=== PATIENT | male | born 1985 | race Caucasian/White ===

== ENCOUNTER 2016-07-30 20:30 | Emergency (ER) | payer OTHER ==
[~2016-07-30] VITALS: Ht 177.8 cm; Wt 105.0 kg
[2016-07-30 21:23] LABS: BASOPHIL % 0.1 % (0-2); PLATELET COUNT 177 x10^3mcL (130-400); RED CELL DISTRIBUTION WIDTH 13.8 % (11.5-14.5)
[2016-07-30 21:33] LABS: CALCIUM 9.3 mg/dL (8.5-10.1); CARBON DIOXIDE 27.8 mmol/L (21-32); CHLORIDE SERUM 103 mmol/L (98-107); CREATININE SERUM 1.2 mg/dL (0.7-1.3); GFR1 > 60 mL/min; GLUCOSE SERUM 127 mg/dL (74-106); SODIUM SERUM 142 mmol/L (136-145)
[2016-07-30 21:38] LABS: ALBUMIN 4.3 g/dL (3.4-5.0); ALKALINE PHOSPHATASE 77 U/L (46-116); ALT/SGPT 101 U/L (16-63); AMYLASE 33 U/L (25-115); AST/SGOT 44 U/L (15-37); BILIRUBIN TOTAL 0.7 mg/dL (0.20-1.00); LIPASE 130 IU/L (73-393)
[2016-07-30 22:13] VITALS: BP 139/82
== END 2016-07-30 22:13 | disposition home or self-care (01) ==
LOC: ED 20:30
PROVIDERS: Emergency Medicine
DX: R11.10 Vomiting, unspecified (principal); F41.9 Anxiety disorder, unspecified; J45.909 Unspecified asthma, uncomplicated; Z79.51 Long term (current) use of inhaled steroids
CPT/HCPCS: 36415; Q0092; Q0162

== ENCOUNTER 2016-09-10 20:20 | Emergency (ER) | payer OTHER ==
[~2016-09-10] VITALS: Ht 177.8 cm; Wt 101.6 kg
[2016-09-10 20:22] VITALS: BP 124/81
== END 2016-09-10 21:42 | disposition home or self-care (01) ==
LOC: ED 20:20
DX: K04.7 Periapical abscess without sinus (principal); F41.9 Anxiety disorder, unspecified; J45.909 Unspecified asthma, uncomplicated

== ENCOUNTER 2016-09-14 17:30 | Emergency (ER) | payer OTHER ==
[2016-09-14 17:35] VITALS: BP 137/89
== END 2016-09-14 18:45 | disposition home or self-care (01) ==
LOC: ED 17:30
DX: K04.7 Periapical abscess without sinus (principal); K02.9 Dental caries, unspecified; J45.909 Unspecified asthma, uncomplicated

== ENCOUNTER 2016-11-06 17:22 | Emergency (ER) | payer OTHER ==
[~2016-11-06] VITALS: Ht 177.8 cm; Wt 100.2 kg
[2016-11-06 19:37] VITALS: BP 138/89
== END 2016-11-06 19:30 | disposition home or self-care (01) ==
LOC: ED 17:22
DX: L03.116 Cellulitis of left lower limb (principal); J45.909 Unspecified asthma, uncomplicated

== ENCOUNTER 2017-01-13 21:04 | Emergency (ER) | payer OTHER ==
[2017-01-13 22:50] VITALS: BP 130/69
== END 2017-01-13 22:50 | disposition home or self-care (01) ==
LOC: ED 21:04
DX: M72.2 Plantar fascial fibromatosis (principal); M77.52 Other enthesopathy of left foot and ankle
CPT/HCPCS: J1885

== ENCOUNTER 2017-02-24 07:33 | Emergency (ER) | payer OTHER ==
[~2017-02-24] VITALS: Ht 177.8 cm; Wt 103.4 kg
[2017-02-24 07:36] VITALS: Ht 177.8 cm; Wt 103.4 kg
[2017-02-24 09:06] LABS: BASOPHIL % 0.3 % (0-2); PLATELET COUNT 165 x10^3mcL (130-400); RED CELL DISTRIBUTION WIDTH 13.3 % (11.5-14.5)
[2017-02-24 09:15] LABS: CALCIUM 8.5 mg/dL (8.5-10.1); CARBON DIOXIDE 30.8 mmol/L (21-32); CHLORIDE SERUM 105 mmol/L (98-107); GFR1 > 60 mL/min; GLUCOSE SERUM 118 mg/dL (74-106); POTASSIUM SERUM 3.9 mmol/L (3.5-5.1); SODIUM SERUM 141 mmol/L (136-145)
[2017-02-24 09:20] LABS: ALBUMIN 3.6 g/dL (3.4-5.0); ALKALINE PHOSPHATASE 68 U/L (46-116); ALT/SGPT 105 U/L (16-63); AST/SGOT 43 U/L (15-37); BILIRUBIN TOTAL 0.7 mg/dL (0.20-1.00); TOTAL PROTEIN, SERUM 7.2 g/dL (6.4-8.2)
[2017-02-24 10:41] VITALS: BP 145/94
== END 2017-02-24 10:41 | disposition home or self-care (01) ==
LOC: ED 07:33
PROVIDERS: Emergency Medicine
DX: R42 Dizziness and giddiness (principal); J45.909 Unspecified asthma, uncomplicated
CPT/HCPCS: 36415; 82962; J8597

== ENCOUNTER 2017-05-05 19:25 | Emergency (ER) | payer OTHER ==
[~2017-05-05] VITALS: Ht 180.3 cm; Wt 110.8 kg
[2017-05-05 19:28] VITALS: Ht 180.3 cm; Wt 110.8 kg
[2017-05-05 20:28] LABS: CALCIUM 8.8 mg/dL (8.5-10.1); CHLORIDE SERUM 104 mmol/L (98-107); GFR1 > 60 mL/min; GLUCOSE SERUM 110 mg/dL (74-106); POTASSIUM SERUM 3.8 mmol/L (3.5-5.1); SODIUM SERUM 138 mmol/L (136-145)
[2017-05-05 20:30] LABS: BASOPHIL % 0.5 % (0-2); PLATELET COUNT 160 x10^3mcL (130-400); RED CELL DISTRIBUTION WIDTH 13.4 % (11.5-14.5)
[2017-05-05 20:32] LABS: ALBUMIN 3.7 g/dL (3.4-5.0); ALKALINE PHOSPHATASE 64 U/L (46-116); ALT/SGPT 124 U/L (16-63); AST/SGOT 49 U/L (15-37); BILIRUBIN TOTAL 0.5 mg/dL (0.20-1.00); CHOLESTEROL 153 mg/dL (<200); HDL CHOLESTEROL 36 mg/dL (40-60); PHOSPHOROUS 3.6 mg/dL (2.5-4.9); TOTAL PROTEIN, SERUM 7.1 g/dL (6.4-8.2); URIC ACID 9.3 mg/dL (3.5-7.2)
[2017-05-05 21:38] VITALS: BP 135/76
== END 2017-05-05 21:38 | disposition home or self-care (01) ==
LOC: ED 19:25
PROVIDERS: Emergency Medicine
DX: R07.89 Other chest pain (principal); J45.909 Unspecified asthma, uncomplicated
CPT/HCPCS: 36415; 83880; J1885; Q0092

== ENCOUNTER 2017-06-13 11:49 | Emergency (ER) | payer OTHER ==
[~2017-06-13] VITALS: Ht 177.8 cm; Wt 109.8 kg
[2017-06-13 11:52] VITALS: Ht 177.8 cm; Wt 109.8 kg
[2017-06-13 13:18] LABS: BASOPHIL % 0.6 % (0-2); PLATELET COUNT 177 x10^3mcL (130-400); RED CELL DISTRIBUTION WIDTH 13.6 % (11.5-14.5)
[2017-06-13 13:35] LABS: CALCIUM 9.1 mg/dL (8.5-10.1); CARBON DIOXIDE 25.6 mmol/L (21-32); CHLORIDE SERUM 105 mmol/L (98-107); GFR1 > 60 mL/min; GLUCOSE SERUM 144 mg/dL (74-106); POTASSIUM SERUM 4.1 mmol/L (3.5-5.1); SODIUM SERUM 139 mmol/L (136-145)
[2017-06-13 13:40] LABS: ALKALINE PHOSPHATASE 71 U/L (46-116); ALT/SGPT 163 U/L (16-63); AST/SGOT 75 U/L (15-37); TOTAL PROTEIN, SERUM 7.7 g/dL (6.4-8.2)
[2017-06-13 14:34] VITALS: BP 125/79
== END 2017-06-13 14:34 | disposition home or self-care (01) ==
LOC: ED 11:49
PROVIDERS: Emergency Medicine
DX: R07.89 Other chest pain (principal); J45.909 Unspecified asthma, uncomplicated
CPT/HCPCS: 36415; 83880; 85378; J1885; Q0092

== ENCOUNTER 2017-07-02 12:38 | Emergency (ER) | payer OTHER ==
[~2017-07-02] VITALS: Ht 177.8 cm; Wt 108.9 kg
[2017-07-02 12:43] VITALS: BP 149/95; Ht 177.8 cm; Wt 108.9 kg
== END 2017-07-02 14:19 | disposition home or self-care (01) ==
LOC: ED 12:38
DX: H10.213 Acute toxic conjunctivitis, bilateral (principal); T30.0 Burn of unspecified body region, unspecified degree; T79.9XXA Unspecified early complication of trauma, initial encounter; J45.909 Unspecified asthma, uncomplicated; X08.8XXA Exposure to other specified smoke, fire and flames, initial encounter; Y93.89 Activity, other specified; Y92.89 Other specified places as the place of occurrence of the external cause; Y99.8 Other external cause status
CPT/HCPCS: J7030; V2632

== ENCOUNTER 2017-07-18 22:01 | Emergency (ER) | payer OTHER ==
[~2017-07-18] VITALS: Ht 180.3 cm; Wt 112.5 kg
[2017-07-18 22:32] VITALS: Ht 180.3 cm; Wt 112.5 kg
[2017-07-19 00:41] VITALS: BP 129/78
== END 2017-07-19 00:41 | disposition home or self-care (01) ==
LOC: ED 22:01
DX: M79.675 Pain in left toe(s) (principal); J45.909 Unspecified asthma, uncomplicated
CPT/HCPCS: Q0092

== ENCOUNTER 2017-10-02 16:15 | Emergency (ER) | payer OTHER ==
[~2017-10-02] VITALS: Ht 177.8 cm; Wt 108.4 kg
[2017-10-02 16:27] VITALS: Ht 177.8 cm; Wt 108.4 kg
[2017-10-02 16:59] LABS: BASOPHIL % 0.4 % (0-2); PLATELET COUNT 183 x10^3mcL (130-400); RED CELL DISTRIBUTION WIDTH 13.6 % (11.5-14.5)
[2017-10-02 17:08] LABS: microscopic required? NO
[2017-10-02 17:14] LABS: CALCIUM 8.5 mg/dL (8.5-10.1); CARBON DIOXIDE 28.8 mmol/L (21-32); CHLORIDE SERUM 105 mmol/L (98-107); GFR1 > 60 mL/min; GLUCOSE SERUM 98 mg/dL (74-106); POTASSIUM SERUM 3.4 mmol/L (3.5-5.1); SODIUM SERUM 141 mmol/L (136-145)
[2017-10-02 17:15] LABS: ALBUMIN 3.8 g/dL (3.4-5.0); ALKALINE PHOSPHATASE 71 U/L (46-116); ALT/SGPT 104 U/L (16-63); AST/SGOT 51 U/L (15-37); BILIRUBIN TOTAL 0.78 mg/dL (0.20-1.00); TOTAL PROTEIN, SERUM 7.1 g/dL (6.4-8.2)
[2017-10-02 17:32] LABS: UA SPECIFIC GRAVITY 1.025 (1.005-1.035); urine erythrocyte NEGATIVE (NEGATIVE)
[2017-10-02 17:56] VITALS: BP 123/72
== END 2017-10-02 17:56 | disposition home or self-care (01) ==
LOC: ED 16:15
PROVIDERS: Emergency Medicine
DX: R10.30 Lower abdominal pain, unspecified (principal); J45.909 Unspecified asthma, uncomplicated; R30.9 Painful micturition, unspecified
CPT/HCPCS: 36415; 87491; 87591; J1885

== ENCOUNTER 2017-11-13 10:39 | Emergency (ER) | payer OTHER ==
[~2017-11-13] VITALS: Ht 177.8 cm; Wt 108.0 kg
[2017-11-13 10:43] VITALS: Ht 177.8 cm; Wt 108.0 kg
[2017-11-13 12:49] VITALS: BP 136/70
== END 2017-11-13 12:49 | disposition home or self-care (01) ==
LOC: ED 10:39
DX: J20.9 Acute bronchitis, unspecified (principal); J45.909 Unspecified asthma, uncomplicated
CPT/HCPCS: J1885; J7613; J7644

== ENCOUNTER 2018-05-19 20:47 | Emergency (ER) | payer OTHER ==
[~2018-05-19] VITALS: Ht 177.8 cm; Wt 108.4 kg
[2018-05-19 21:05] VITALS: Ht 177.8 cm; Wt 108.4 kg
[2018-05-19 21:33] VITALS: BP 130/79
== END 2018-05-19 21:33 | disposition home or self-care (01) ==
LOC: ED 20:47
DX: K62.5 Hemorrhage of anus and rectum (principal); J45.909 Unspecified asthma, uncomplicated

== ENCOUNTER 2018-05-20 11:47 | Emergency (ER) | payer OTHER ==
[~2018-05-20] VITALS: Ht 180.3 cm; Wt 107.5 kg
[2018-05-20 11:54] VITALS: Ht 180.3 cm; Wt 107.5 kg
[2018-05-20 13:41] LABS: microscopic required? NO
[2018-05-20 13:49] LABS: urine erythrocyte NEGATIVE (NEGATIVE)
[2018-05-20 13:52] LABS: BASOPHIL % 0.4 % (0-2); PLATELET COUNT 177 x10^3mcL (130-400); RED CELL DISTRIBUTION WIDTH 14.1 % (11.5-14.5)
[2018-05-20 14:10] LABS: CALCIUM 9.2 mg/dL (8.5-10.1); CARBON DIOXIDE 25.9 mmol/L (21-32); CHLORIDE SERUM 105 mmol/L (98-107); GFR1 > 60 mL/min; GLUCOSE SERUM 124 mg/dL (74-106); POTASSIUM SERUM 3.7 mmol/L (3.5-5.1); SODIUM SERUM 140 mmol/L (136-145)
[2018-05-20 14:14] LABS: ALBUMIN 3.9 g/dL (3.4-5.0); ALKALINE PHOSPHATASE 77 U/L (46-116); ALT/SGPT 96 U/L (16-63); AST/SGOT 49 U/L (15-37); BILIRUBIN TOTAL 0.86 mg/dL (0.20-1.00); TOTAL PROTEIN, SERUM 7.4 g/dL (6.4-8.2)
[2018-05-20 14:57] VITALS: BP 128/80
== END 2018-05-20 14:57 | disposition home or self-care (01) ==
LOC: ED 11:47
PROVIDERS: Emergency Medicine
DX: K52.9 Noninfective gastroenteritis and colitis, unspecified (principal); J45.909 Unspecified asthma, uncomplicated
CPT/HCPCS: J1885

== ENCOUNTER 2018-06-10 13:27 | Emergency (ER) | payer OTHER ==
[~2018-06-10] VITALS: Ht 177.8 cm; Wt 109.8 kg
[2018-06-10 14:17] VITALS: Ht 177.8 cm; Wt 109.8 kg
[2018-06-10 17:45] VITALS: BP 134/84
== END 2018-06-10 17:45 | disposition home or self-care (01) ==
LOC: ED 13:27
DX: M10.022 Idiopathic gout, left elbow (principal); J45.909 Unspecified asthma, uncomplicated
CPT/HCPCS: 36415; J1885; J7512

== ENCOUNTER 2018-08-25 18:26 | Emergency (ER) | payer OTHER ==
[~2018-08-25] VITALS: Ht 177.8 cm; Wt 109.8 kg
[2018-08-25 18:30] VITALS: Ht 177.8 cm; Wt 109.8 kg
[2018-08-25 19:05] VITALS: BP 123/82
== END 2018-08-25 19:05 | disposition home or self-care (01) ==
LOC: ED 18:26
DX: M10.022 Idiopathic gout, left elbow (principal); J45.909 Unspecified asthma, uncomplicated
CPT/HCPCS: J1885

== ENCOUNTER 2018-10-11 17:29 | Emergency (ER) | payer OTHER ==
[~2018-10-11] VITALS: Ht 177.8 cm; Wt 108.4 kg
[2018-10-11 17:40] VITALS: Ht 177.8 cm; Wt 108.4 kg
[2018-10-11 19:33] LABS: BASOPHIL % 0.6 % (0-2); PLATELET COUNT 189 x10^3mcL (130-400)
[2018-10-11 19:37] LABS: CALCIUM 8.8 mg/dL (8.5-10.1); CARBON DIOXIDE 26.3 mmol/L (21-32); CHLORIDE SERUM 105 mmol/L (98-107); GFR1 > 60 mL/min; GLUCOSE SERUM 88 mg/dL (74-106); POTASSIUM SERUM 3.7 mmol/L (3.5-5.1); SODIUM SERUM 143 mmol/L (136-145)
[2018-10-11 19:43] LABS: RED CELL DISTRIBUTION WIDTH 14.8 % (11.5-14.5)
[2018-10-11 19:48] LABS: ALBUMIN 3.8 g/dL (3.4-5.0); ALKALINE PHOSPHATASE 68 U/L (46-116); ALT/SGPT 91 U/L (16-63); AST/SGOT 47 U/L (15-37); BILIRUBIN TOTAL 0.7 mg/dL (0.20-1.00); CHOLESTEROL 169 mg/dL (<200); CHOLESTEROL/HDL RATIO 4.8; HDL CHOLESTEROL 35 mg/dL (40-60); LIPASE 115 IU/L (73-393); TOTAL PROTEIN, SERUM 7.4 g/dL (6.4-8.2); TRIGLYCERIDES 145 mg/dL (<150)
[2018-10-11 21:22] VITALS: BP 111/76
== END 2018-10-11 21:23 | disposition home or self-care (01) ==
LOC: ED 17:29
PROVIDERS: Specialist
DX: M94.0 Chondrocostal junction syndrome [Tietze] (principal); J45.909 Unspecified asthma, uncomplicated; M10.9 Gout, unspecified
CPT/HCPCS: 36415; J1885; Q0092

== ENCOUNTER 2018-11-04 07:01 | Emergency (ER) | payer OTHER ==
[~2018-11-04] VITALS: Ht 177.8 cm; Wt 108.5 kg
[2018-11-04 07:08] VITALS: Ht 177.8 cm; Wt 108.5 kg
[2018-11-04 07:40] LABS: BASOPHIL % 0.4 % (0-2); PLATELET COUNT 200 x10^3mcL (130-400); RED CELL DISTRIBUTION WIDTH 14.5 % (11.5-14.5)
[2018-11-04 07:45] LABS: CALCIUM 8.7 mg/dL (8.5-10.1); CARBON DIOXIDE 27.8 mmol/L (21-32); CHLORIDE SERUM 107 mmol/L (98-107); GFR1 > 60 mL/min; GLUCOSE SERUM 109 mg/dL (74-106); POTASSIUM SERUM 4.5 mmol/L (3.5-5.1); SODIUM SERUM 142 mmol/L (136-145)
[2018-11-04 09:00] VITALS: BP 121/75
== END 2018-11-04 09:00 | disposition home or self-care (01) ==
LOC: ED 07:01
PROVIDERS: Emergency Medicine
DX: G44.209 Tension-type headache, unspecified, not intractable (principal); R42 Dizziness and giddiness; J45.909 Unspecified asthma, uncomplicated
CPT/HCPCS: 36415; J0780; J1885

== ENCOUNTER 2019-01-07 16:46 | Emergency (ER) | payer OTHER ==
[~2019-01-07] VITALS: Ht 177.8 cm; Wt 109.8 kg
[2019-01-07 17:01] VITALS: Ht 177.8 cm; Wt 109.8 kg
[2019-01-07 20:58] LABS: BASOPHIL % 0.6 % (0-2); PLATELET COUNT 180 x10^3mcL (130-400); RED CELL DISTRIBUTION WIDTH 13.9 % (11.5-14.5)
[2019-01-07 21:12] LABS: CALCIUM 8.5 mg/dL (8.5-10.1); CARBON DIOXIDE 29.2 mmol/L (21-32); CHLORIDE SERUM 103 mmol/L (98-107); CREATININE SERUM 1.1 mg/dL (0.7-1.3); GFR1 > 60 mL/min; GLUCOSE SERUM 89 mg/dL (74-106); POTASSIUM SERUM 3.8 mmol/L (3.5-5.1); SODIUM SERUM 140 mmol/L (136-145)
[2019-01-07 21:16] LABS: ALBUMIN 3.6 g/dL (3.4-5.0); ALKALINE PHOSPHATASE 73 U/L (46-116); ALT/SGPT 76 U/L (16-63); AST/SGOT 42 U/L (15-37); BILIRUBIN TOTAL 0.7 mg/dL (0.20-1.00); LIPASE 138 IU/L (73-393); TOTAL PROTEIN, SERUM 7.3 g/dL (6.4-8.2)
[2019-01-08 01:08] VITALS: BP 121/79
== END 2019-01-07 23:45 | disposition home or self-care (01) ==
LOC: ED 16:46
PROVIDERS: Emergency Medicine
DX: R16.1 Splenomegaly, not elsewhere classified (principal); J45.909 Unspecified asthma, uncomplicated; M10.9 Gout, unspecified
CPT/HCPCS: 36415; 86308; J1885

== ENCOUNTER 2019-02-19 17:46 | Emergency (ER) | payer OTHER ==
[~2019-02-19] VITALS: Ht 177.8 cm; Wt 108.0 kg
[2019-02-19 17:49] VITALS: Ht 177.8 cm; Wt 108.0 kg
[2019-02-19 19:30] VITALS: BP 133/82
== END 2019-02-19 19:30 | disposition home or self-care (01) ==
LOC: ED 17:46
DX: B34.9 Viral infection, unspecified (principal); J45.909 Unspecified asthma, uncomplicated; R11.0 Nausea

== ENCOUNTER 2019-03-01 23:47 | Emergency (ER) | payer OTHER ==
[~2019-03-01] VITALS: Ht 177.8 cm; Wt 104.3 kg
[2019-03-02 00:22] VITALS: Ht 177.8 cm; Wt 104.3 kg
[2019-03-02 02:45] VITALS: BP 129/87
== END 2019-03-02 02:44 | disposition home or self-care (01) ==
LOC: ED 23:47
DX: M10.9 Gout, unspecified (principal); J45.909 Unspecified asthma, uncomplicated
CPT/HCPCS: J1885

== ENCOUNTER 2019-05-06 18:44 | Emergency (ER) | payer OTHER ==
[~2019-05-06] VITALS: Ht 177.8 cm; Wt 108.4 kg
[2019-05-06 19:04] VITALS: Ht 177.8 cm; Wt 108.4 kg
[2019-05-06 20:03] LABS: BASOPHIL % 0.4 % (0-2); PLATELET COUNT 187 x10^3mcL (130-400); RED CELL DISTRIBUTION WIDTH 14.5 % (11.5-14.5)
[2019-05-06 20:17] LABS: CARBON DIOXIDE 26.9 mmol/L (21-32); CHLORIDE SERUM 105 mmol/L (98-107); GFR1 > 60 mL/min; GLUCOSE SERUM 125 mg/dL (74-106); POTASSIUM SERUM 3.5 mmol/L (3.5-5.1); SODIUM SERUM 140 mmol/L (136-145)
[2019-05-06 20:22] LABS: ALBUMIN 3.7 g/dL (3.4-5.0); ALKALINE PHOSPHATASE 73 U/L (46-116); ALT/SGPT 70 U/L (16-63); AST/SGOT 30 U/L (15-37); BILIRUBIN TOTAL 0.8 mg/dL (0.20-1.00); TOTAL PROTEIN, SERUM 7.3 g/dL (6.4-8.2)
[2019-05-06 22:19] VITALS: BP 115/61
== END 2019-05-06 22:19 | disposition home or self-care (01) ==
LOC: ED 18:44
PROVIDERS: Emergency Medicine
DX: H81.10 Benign paroxysmal vertigo, unspecified ear (principal)
CPT/HCPCS: 36415; 87804; J8597

== ENCOUNTER 2019-08-11 08:53 | Emergency (ER) | payer OTHER, SELFPAY ==
[~2019-08-11] VITALS: Ht 177.8 cm; Wt 104.3 kg
[2019-08-11 09:30] VITALS: Ht 177.8 cm; Wt 104.3 kg
[2019-08-11 11:58] VITALS: BP 124/79
== END 2019-08-11 11:58 | disposition home or self-care (01) ==
LOC: ED 08:53
DX: F41.9 Anxiety disorder, unspecified (principal); R07.89 Other chest pain; J45.909 Unspecified asthma, uncomplicated; Z20.828 Contact with and (suspected) exposure to other viral communicable diseases
CPT/HCPCS: Q0092; U0003-CS

== ENCOUNTER 2020-05-04 12:42 | Emergency (ER) | payer OTHER ==
[~2020-05-04] VITALS: Ht 177.8 cm; Wt 113.4 kg
[2020-05-04 12:58] VITALS: Ht 177.8 cm; Wt 113.4 kg
[2020-05-04] MEDS ORDERED: COLCHICINE0.6 M2 PO (13:19)
[2020-05-04] MEDS ORDERED: INDOMETHACIN50 MG PO (13:19)
[2020-05-04 13:25] VITALS: BP 125/68
== END 2020-05-04 13:25 | disposition home or self-care (01) ==
LOC: ED 12:42
DX: M10.9 Gout, unspecified (principal); J45.909 Unspecified asthma, uncomplicated